=== PATIENT | female | born 1955 | race Caucasian/White ===

== ENCOUNTER 2018-03-29 14:17 | Inpatient (IN) | payer MEDICAID ==
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
[2018-03-29 15:45] LABS: BASO # 0.1 K/uL (0.0-0.2); BASO % 0.7 % (0.0-2.0); EOS # 0.3 K/uL (0.0-0.7); EOS % 2.4 % (0.0-4.0); HEMOGLOBIN 12.7 g/dL (11.0-16.0); LYMPH # 1.9 K/uL (1.0-4.3); LYMPH % 18.5 % (20.0-40.0); MEAN CORPUSCULAR HEMOGLOBIN 28.4 pg (27.0-31.0); MEAN CORPUSCULAR HGB CONC 33.3 g/dL (33.0-37.0); MEAN PLATELET VOLUME 8.2 fL (7.2-11.7); MONO # 0.5 K/uL (0.0-0.8); MONO % 5.1 % (0.0-10.0); NEUT # 7.7 K/uL (1.8-7.0); NEUT % 73.3 % (50.0-75.0); NRBC % 0.1 % (0.0-2.0); RBC 4.48 Mil/uL (3.80-5.20); RED CELL DISTRIBUTION WIDTH 13.8 % (11.5-14.5); WHITE BLOOD COUNT 10.5 K/uL (4.8-10.8)
[2018-03-29 15:54] LABS: SQUAMOUS EPITHIAL < 1 /hpf (0-5); URINE BILIRUBIN NEGATIVE (NEGATIVE); URINE BLOOD NEGATIVE (NEGATIVE); URINE CLARITY Clear (Clear); URINE COLOR Straw (YELLOW); URINE GLUCOSE (UA) 3+ mg/dL (Normal); URINE LEUKOCYTE ESTERASE TRACE Leu/uL (Negative); URINE PROTEIN NEGATIVE (NEGATIVE); URINE UROBILINOGEN NORMAL mg/dL (0.2-1.0)
[2018-03-29 16:01] LABS: ALB/GLOB RATIO 1.4 (1.0-2.1); ALBUMIN 4.1 g/dL (3.5-5.0); ALT/SGPT 22 U/L (9-52); AST/SGOT 24 U/L (14-36); BLOOD UREA NITROGEN 9 mg/dL (7-17); CALCIUM 9.7 mg/dl (8.6-10.4); GFR AFRICAN-AMERICAN > 60; GFR NON-AFRICAN AMERICAN > 60
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
--- NOTE | 2018-03-29 16:53 | RAD ---
Date of service: 03/29/2018 PROCEDURE: CHEST RADIOGRAPH, 1 VIEW HISTORY: SOB COMPARISON: 01/14/2013. FINDINGS: LUNGS: The lungs are well inflated and clear. PLEURA: No pneumothorax or pleural fluid seen. CARDIOVASCULAR: There is mild cardiomegaly. OSSEOUS STRUCTURES: No significant abnormalities. VISUALIZED UPPER ABDOMEN: Normal. OTHER FINDINGS: None. IMPRESSION: No active pulmonary disease.
--- NOTE | 2018-03-29 19:01 | CP.PCM.HP ---
Past Patient History - Past Social History Smoking Status: Never Smoked - CARDIAC Hx Hypercholesterolemia: Yes Hx Hypertension: Yes - PULMONARY Hx Asthma: Yes - ENDOCRINE/METABOLIC Hx Diabetes Mellitus Type 2: Yes - MUSCULOSKELETAL/RHEUMATOLOGICAL Hx Arthritis: Yes - PSYCHIATRIC Hx Substance Use: No - SURGICAL HISTORY Hx Surgeries: Yes Other/Comment: skull, left eye, right hand, left hip, kidney tumor - ANESTHESIA Hx Anesthesia: Yes Hx Anesthesia Reactions: No Hx Malignant Hyperthermia: No Meds Allergies/Adverse Reactions: Allergies Allergy/AdvReac Type Severity Reaction Status Date / Time Penicillins Allergy Verified 03/29/18 14:40 Results - Vital Signs Recent Vital Signs: Last Vital Signs Temp 98.4 F 03/29/18 14:35 Pulse 79 03/29/18 17:05 Resp 18 03/29/18 17:05 BP 159/83 H 03/29/18 17:05 Pulse Ox 97 03/29/18 18:52 - Labs Result Diagrams: 03/29/18 15:33 03/29/18 15:33 Labs: Laboratory Results - last 24 hr 03/29/18 03/29/18 03/29/18 14:34 15:33 15:33 WBC 10.5 RBC 4.48 Hgb 12.7 Hct 38.1 MCV 85.0 MCH 28.4 MCHC 33.3 RDW 13.8 Plt Count 224 MPV 8.2 Neut % (Auto) 73.3 Lymph % (Auto) 18.5 L [place] % (Auto) 5.1 Eos % (Auto) 2.4 Baso % (Auto) 0.7 Neut # (Auto) 7.7 H Lymph # (Auto) 1.9 [place] # (Auto) 0.5 Eos # (Auto) 0.3 Baso # (Auto) 0.1 Sodium Potassium Chloride Carbon Dioxide Anion Gap BUN Creatinine Est GFR ( Amer) Est GFR (Non-Af Amer) POC Glucose (mg/dL) 179 H Random Glucose Calcium Total Bilirubin AST ALT Alkaline Phosphatase Troponin I Total Protein Albumin Globulin Albumin/Globulin Ratio TSH 3rd Generation Urine Color Straw Urine Clarity Clear Urine pH 6.0 Ur Specific [place] 1.007 Urine Protein Negative Urine Glucose (UA) 3+ H Urine Ketones Negative Urine Blood Negative Urine Nitrate Negative Urine Bilirubin Negative Urine Urobilinogen Normal Ur Leukocyte Esterase Trace Urine WBC (Auto) 2 Ur Squamous Epith Cells < 1 03/29/18 15:33 WBC RBC Hgb Hct MCV MCH MCHC RDW Plt Count MPV Neut % (Auto) Lymph % (Auto) [place] % (Auto) Eos % (Auto) Baso % (Auto) Neut # (Auto) Lymph # (Auto) [place] # (Auto) Eos # (Auto) Baso # (Auto) Sodium 141 Potassium 4.5 Chloride 103 Carbon Dioxide 30 Anion Gap 13 BUN 9 Creatinine 0.6 L Est GFR ( Amer) > 60 Est GFR (Non-Af Amer) > 60 POC Glucose (mg/dL) Random Glucose 166 H Calcium 9.7 Total Bilirubin 0.4 AST 24 ALT 22 Alkaline Phosphatase 110 Troponin I < 0.0120 Total Protein 7.0 Albumin 4.1 Globulin 2.9 Albumin/Globulin Ratio 1.4 TSH 3rd Generation 1.78 Urine Color Urine Clarity Urine pH Ur Specific [place] Urine Protein Urine Glucose (UA) Urine Ketones Urine Blood Urine Nitrate Urine Bilirubin Urine Urobilinogen Ur Leukocyte Esterase Urine WBC (Auto) Ur Squamous Epith Cells Assessment & Plan - Assessment and Plan (Free Text) Plan: gi dvt prhylaxis fs ac hs low dose novolog dr. miranda ct scan done antivert
[2018-03-29] MEDS: Insulin Detemir 100 units/ml Vial (Levemir) SC SCH (21:45)
[2018-03-29] MEDS ORDERED: Insulin Detemir 100 units/ml Vial (Levemir) SC SCH (22:00)
[2018-03-30 07:06] LABS: FREE T4 0.91 ng/dL (0.78-2.19)
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
--- NOTE | 2018-03-30 09:33 | CP.PCM.PN ---
<Isaias Sharp - Last Filed: 04/02/18 07:45> Subjective - Date & Time of Evaluation Date of Evaluation: 03/30/18 Time of Evaluation: 09:32 - Subjective Subjective: Progress note for Dr. Rod Berg's Service Patient seen and examined at bedside. Per nursing no acute events occurred overnight. Patient reports an improvement in symptoms since being admitted to the hospital. The patient denies any chest pain, palpitations, fevers, chills, nausea, vomitiny, or any other complaints. Objective - Vital Signs/Intake and Output Vital Signs (last 24 hours): Temp Pulse Resp BP Pulse Ox 98.1 F 89 20 144/75 97 03/30/18 08:25 03/30/18 08:25 03/30/18 08:25 03/30/18 08:25 03/30/18 08:25 Intake and Output: 03/30/18 03/30/18 06:59 18:59 Intake Total 10 Balance 10 - Medications Medications: Current Medications Carvedilol (Coreg) 6.25 mg PO BID REPLACED BY [facility] Clopidogrel Bisulfate (Plavix) 75 mg PO DAILY [facility]PLAC[facility] Enoxaparin Sodium (Lovenox) 40 mg SC DAILY REPLACED BY [facility] Famotidine (Pepcid) 40 mg PO DAILY REPLACED BY [facility] Gabapentin (Neurontin) 800 mg PO [facility] Last Admin: 03/29/18 21:45 Dose: 800 mg Home Med (Alogliptin Donato/Metformin Hcl [Alogliptin-Metformin 12.5-500]) 1 tab PO BID [facility]PL[facility] Insulin Detemir (Levemir) 30 unit SC [facility] Last Admin: 03/29/18 21:45 Dose: 30 unit Meclizine HCl (Antivert) 25 mg PO Q8 [facility]PL[facility] Last Admin: 03/30/18 05:31 Dose: 25 mg Multivitamins (Hexavitamin) 1 tab PO DAILY [facility] Pioglitazone HCl (Actos) 30 mg PO DAILY [facility]PLAC[facility] Rosuvastatin Calcium (Crestor) 40 mg PO [facility] Last Admin: 03/29/18 21:45 Dose: 40 mg - Labs Labs: 03/29/18 15:33 03/29/18 15:33 - Head Exam Head Exam: ATRAUMATIC, NORMAL INSPECTION, NORMOCEPHALIC - Eye Exam Eye Exam: EOMI, Normal appearance, PERRL Pupil Exam: NORMAL ACCOMODATION, PERRL - ENT Exam ENT Exam: Mucous Membranes Moist, Normal Oropharynx - Respiratory Exam Respiratory Exam: Clear to Ausculation Bilateral, NORMAL BREATHING PATTERN - Cardiovascular Exam Cardiovascular Exam: REGULAR RHYTHM, +S1, +S2 - GI/Abdominal Exam GI & Abdominal Exam: Soft, Normal Bowel Sounds - Extremities Exam Extremities Exam: Full ROM, Normal Inspection - Back Exam Back Exam: NORMAL INSPECTION. absent: CVA tenderness (R), paraspinal tenderness - Neurological Exam Neurological Exam: Alert, CN II-XII Intact, Oriented x3 - Psychiatric Exam Psychiatric exam: Normal Affect, Normal Mood - Skin Skin Exam: Dry, Intact Assessment and Plan - Assessment and Plan (Free Text) Assessment: 62 year old female with a past medical history of hypertension, diabetic neuropathy, and hypercholesterolemia and diabetes who was admitted for dizziness. Plan: 1. Dizziness -Antivert -Neurology consulted (Dr. Magaña). Help appreciated. -Carotid U/S ordered .Will f/u with results. -Echo ordered .Will f/u with results. 2. hx of diabetes -Continue home medications -Carb consistent diet -Accu checks ACHS 3. hx of hypertension -Continue home medications 4. hx of hypercholesterolemia -Continue home medications PPX Lovenox Case discussed with Attending Dr. Rod Berg. Isaias Sharp, PGY-2. <Barrington Berg S - Last Filed: 04/02/18 23:16> Objective - Vital Signs/Intake and Output Vital Signs (last 24 hours): Temp Pulse Resp BP Pulse Ox 98.3 F 69 20 121/72 100 04/02/18 15:07 04/02/18 15:07 04/02/18 15:07 04/02/18 15:07 04/02/18 15:07 Intake and Output: 04/02/18 04/03/18 18:59 06:59 Intake Total 400 Balance 400 - Medications Medications: Current Medications Carvedilol (Coreg) 6.25 mg PO BID REPLACED [facility] Last Admin: 04/02/18 17:14 Dose: 6.25 mg Clopidogrel Bisulfate (Plavix) 75 mg PO DAILY [facility] Last Admin: 04/02/18 09:51 Dose: 75 mg Diphenhydramine HCl (Benadryl) 25 mg PO BID REPLACED [facility] Last Admin: 04/02/18 17:14 Dose: 25 mg Enoxaparin Sodium (Lovenox) 40 mg SC DAILY REPLACED [facility] Last Admin: 04/02/18 09:52 Dose: 40 mg Famotidine (Pepcid) 40 mg PO DAILY [facility] Last Admin: 04/02/18 09:51 Dose: 40 mg Gabapentin (Neurontin) 800 mg PO [facility] Last Admin: 04/02/18 22:44 Dose: 800 mg Insulin Detemir (Levemir) 30 unit SC [facility] Last Admin: 04/02/18 22:44 Dose: 30 unit Lactulose (Enulose) 20 gm PO [facility] Last Admin: 04/02/18 22:47 Dose: Not Given Meclizine HCl (Antivert) 25 mg PO Q8 REPLACED [facility] Last Admin: 04/02/18 22:44 Dose: 25 mg Metformin HCl (Glucophage) 500 mg PO BIDCC REPLACED BY [facility] Last Admin: 04/02/18 17:14 Dose: 500 mg Multivitamins (Hexavitamin) 1 tab PO DAILY [facility] Last Admin: 04/02/18 09:51 Dose: 1 tab Ondansetron HCl (Zofran Inj) 4 mg IVP Q6 PRN PRN Reason: Nausea/Vomiting Last Admin: 03/31/18 01:05 Dose: 4 mg Pioglitazone HCl (Actos) 30 mg PO DAILY [facility]PLACED [facility] Last Admin: 04/02/18 09:49 Dose: 30 mg Rosuvastatin Calcium (Crestor) 40 mg PO [facility] Last Admin: 04/02/18 22:45 Dose: 40 mg Sitagliptin Phosphate (Januvia) 100 mg PO DAILY REPLACED [facility] Last Admin: 04/02/18 09:52 Dose: 100 mg - Labs Labs: 04/02/18 06:32 04/02/18 06:32 Attending/Attestation - Attestation I have personally seen and examined this patient.: Yes I have fully participated in the care of the patient.: Yes I have reviewed all pertinent clinical information, including history, physical exam and plan: Yes Notes (Text): jens golden
[2018-03-30] MEDS ORDERED: Insulin Detemir 100 units/ml Vial (Levemir) SC SCH (10:00)
[2018-03-30] MEDS: Multiple Vitamins Tab PO SCH (11:17)
[2018-03-30] MEDS: Enoxaparin 40 mg Syringe SC SCH (11:18)
--- NOTE | 2018-03-30 11:59 | VASCLAB ---
Date of service: 03/30/2018 PROCEDURE: HISTORY: assess stenosis,DIZZINESS COMPARISON: None available. TECHNIQUE: Grayscale and duplex Doppler evaluation of the cervical carotid and vertebral arteries were performed. The common carotid, carotid bifurcations and cervical Internal Carotid Artery (ICA) and proximal External Carotid Artery (ECA) were evaluated. The vertebral arteries were evaluated for gross patency and flow direction. Report prepared by Patria Townsend, CAM, S FINDINGS: RIGHT CAROTID ARTERIES: 1. Common Carotid Artery: No significant focal plaque formation of the right common carotid artery. Maximum Peak Systolic velocity: 87 cm/sec: End-diastolic velocity 23 cm/sec. 2. Carotid Bifurcation: plaque formation. Maximum Peak Systolic velocity: 50 cm/sec: End-diastolic velocity 13 cm/sec. 3. Internal Carotid Artery: Plaque description: 3.1. Proximal Segment: Peak systolic velocity 60 cm/sec: End-diastolic velocity 20 cm/sec - % stenosis 3.2. Middle Segment: Peak systolic velocity 71 cm/sec: End-diastolic velocity 22 cm/sec - % stenosis 3.3. Distal Segment: Peak systolic velocity 74 cm/sec: End-diastolic velocity 28 cm/sec - % stenosis 4. External Carotid Artery: No significant focal plaque formation. Peak systolic velocity 62 cm/sec 5. ICA/CCA Ratio: 0.9 LEFT CAROTID ARTERIES: 1. Common Carotid Artery: No significant focal plaque formation of the left common carotid artery. Maximum Peak Systolic velocity: 85 cm/sec: End-diastolic velocity 13 cm/sec. 2. Carotid Bifurcation: plaque formation. Maximum Peak Systolic velocity: 53 cm/sec: End-diastolic velocity 12 cm/sec. 3. Internal Carotid Artery: Plaque description: 3.1. Proximal Segment: Peak systolic velocity 83 cm/sec: End-diastolic velocity 26 cm/sec - % stenosis 3.2. Middle Segment: Peak systolic velocity 100 cm/sec: End-diastolic velocity 31 cm/sec - % stenosis 3.3. Distal Segment: Peak systolic velocity 84 cm/sec: End-diastolic velocity 24 cm/sec - % stenosis 4. External Carotid Artery: No significant focal plaque formation. Peak systolic velocity 63 cm/sec 5. ICA/CCA Ratio: 1.4 VERTEBRAL ARTERIES: 1. Right Vertebral Artery: The right vertebral artery flow direction is antegrade. 2. Left Vertebral Artery: The left vertebral artery flow direction is antegrade. OTHER FINDINGS: 1. Right Brachial Blood pressure: 144 mmHg. 2. Left Brachial Blood pressure: 148 mmHg. IMPRESSION: RIGHT: Duplex scan does not suggest hemodynamically significant stenosis of the right extracranial carotid arteries. LEFT: Duplex scan does not suggest hemodynamically significant stenosis of the left extracranial carotid arteries.
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
--- NOTE | 2018-03-30 17:26 | CARD ---
APPROVED REPORT Date of service: 03/30/2018 EXAM: Two-dimensional and M-mode echocardiogram with Doppler and color Doppler. INDICATION Dizziness and Vertigo cardiac status RISK FACTORS Hyperlipidemia 2D DIMENSIONS IVSd1.3 (0.7-1.1cm)LVDd4.7 (3.9-5.9cm) PWd1.2 (0.7-1.1cm)LVDs2.9 (2.5-4.0cm) FS (%) 40.0 %LVEF (%)70.5 (>50%) M-Mode DIMENSIONS Left Atrium (MM)4.27 (2.5-4.0cm)IVSd1.23 (0.7-1.1cm) Aortic Root3.13 (2.2-3.7cm)LVDd5.38 (4.0-5.6cm) Aortic Cusp Exc.2.28 (1.5-2.0cm)PWd0.88 (0.7-1.1cm) FS (%) 43 %LVDs3.06 (2.0-3.8cm) LVEF (%)74 (>50%) Mitral Valve MV E Xmzerpil21.1cm/sMV A Zfmwnfzt32.6cm/sE/A ratio0.9 TDI E/Lateral E'0.0E/Medial E'0.0 Tricuspid Valve TR Peak [id number]/sTR Peak Gr.[id number] LEFT VENTRICLE The left ventricle is normal size. There is mild concentric left ventricular hypertrophy. The left ventricular function is normal. The left ventricular ejection fraction is within the normal range. There is normal LV segmental wall motion. Transmitral Doppler flow pattern is Grade I-abnormal relaxation pattern. RIGHT VENTRICLE The right ventricle is normal size. There is normal right ventricular wall thickness. The right ventricular systolic function is normal. ATRIA The left atrium is borderline dilated. The right atrium size is normal. AORTIC VALVE The aortic valve is mildly thickened. No aortic regurgitation is present. There is no aortic valvular stenosis. MITRAL VALVE The mitral valve is mildly thickened. There is no mitral valve stenosis. There is no mitral valve regurgitation noted. TRICUSPID VALVE The tricuspid valve is normal in structure. There is no tricuspid valve regurgitation noted. PULMONIC VALVE The pulmonary valve is normal in structure. There is no pulmonic valvular regurgitation. GREAT VESSELS The aortic root is normal in size. The IVC is normal in size and collapses >50% with inspiration. PERICARDIAL EFFUSION There is no pericardial effusion. <Conclusion> The left ventricle is normal size. There is mild concentric left ventricular hypertrophy. The left ventricular function is normal. The left ventricular ejection fraction is within the normal range. There is normal LV segmental wall motion. Transmitral Doppler flow pattern is Grade I-abnormal relaxation pattern.
--- NOTE | 2018-03-30 20:57 | CP.PCM.PN ---
Subjective - Date & Time of Evaluation Date of Evaluation: 03/30/18 Time of Evaluation: 10:00 - Subjective Subjective: clinically same Objective - Vital Signs/Intake and Output Vital Signs (last 24 hours): Temp Pulse Resp BP Pulse Ox 98.2 F 78 20 126/76 95 03/30/18 15:07 03/30/18 15:07 03/30/18 15:07 03/30/18 15:07 03/30/18 15:07 - Medications Medications: Current Medications Carvedilol (Coreg) 6.25 mg PO BID COUNTS [facility]CLUDE 234 BEDS AT THE [facility] Last Admin: 03/30/18 17:24 Dose: 6.25 mg Clopidogrel Bisulfate (Plavix) 75 mg PO DAILY [facility]S INCLUDE 234 BEDS AT THE [facility] Last Admin: 03/30/18 11:16 Dose: 75 mg Enoxaparin Sodium (Lovenox) 40 mg SC DAILY [facility]S INCLUDE 234 BEDS AT THE [facility] Last Admin: 03/30/18 11:18 Dose: 40 mg Famotidine (Pepcid) 40 mg PO DAILY [facility]S [facility]CLUDE 234 BEDS AT THE [facility] Last Admin: 03/30/18 11:18 Dose: 40 mg Gabapentin (Neurontin) 800 mg PO [facility] Last Admin: 03/29/18 21:45 Dose: 800 mg Insulin Detemir (Levemir) 30 unit SC [facility] Last Admin: 03/29/18 21:45 Dose: 30 unit Meclizine HCl (Antivert) 25 mg PO Q8 COUNTS INCLUDE 234 BEDS AT THE [facility] Last Admin: 03/30/18 14:25 Dose: 25 mg [facility] Last Admin: 03/30/18 17:24 Dose: 500 mg Multivitamins (Hexavitamin) 1 tab PO DAILY [facility]CLUDE 234 BEDS AT THE [facility] Last Admin: 03/30/18 11:17 Dose: 1 tab Ondansetron HCl (Zofran Inj) 4 mg IVP Q6 PRN PRN Reason: Nausea/Vomiting Last Admin: 03/30/18 12:27 Dose: 4 mg Pioglitazone HCl (Actos) 30 mg PO DAILY [facility]CLUDE 234 BEDS AT [facility] Last Admin: 03/30/18 11:18 Dose: 30 mg Rosuvastatin Calcium (Crestor) 40 mg PO [facility] Last Admin: 03/29/18 21:45 Dose: 40 mg Sitagliptin Phosphate (Januvia) 100 mg PO DAILY [facility] INCLUDE 234 BEDS AT THE [facility] Last Admin: 03/30/18 11:16 Dose: 100 mg - Labs Labs: 03/29/18 15:33 03/29/18 15:33 - Constitutional Appears: Well - Head Exam Head Exam: ATRAUMATIC, NORMAL INSPECTION, NORMOCEPHALIC - Eye Exam Eye Exam: EOMI, Normal appearance, PERRL Pupil Exam: NORMAL ACCOMODATION, PERRL - ENT Exam ENT Exam: Mucous Membranes Moist, Normal Exam - Neck Exam Neck Exam: Full ROM, Normal Inspection. absent: Lymphadenopathy - Respiratory Exam Respiratory Exam: Decreased Breath Sounds - Cardiovascular Exam Cardiovascular Exam: REGULAR RHYTHM, +S1, +S2 - GI/Abdominal Exam GI & Abdominal Exam: Soft, Diminished Bowel Sounds - Rectal Exam Rectal Exam: Deferred Assessment and Plan - Assessment and Plan (Free Text) Plan: 62 year old female with a past medical history of hypertension, diabetic neuropathy, and hypercholesterolemia and diabetes who was admitted for dizziness. Plan: 1. Dizziness -Antivert -Neurology consulted (Dr. Magaña). Help appreciated. -Carotid U/S ordered .Will f/u with results. -Echo ordered .Will f/u with results. 2. hx of diabetes -Continue home medications -Carb consistent diet -Accu checks ACHS 3. hx of hypertension -Continue home medications 4. hx of hypercholesterolemia -Continue home medications
[2018-03-30] MEDS: Insulin Detemir 100 units/ml Vial (Levemir) SC SCH (21:49)
[2018-03-31 08:44] LABS: BASO % 0.3 % (0.0-2.0); EOS # 0.2 K/uL (0.0-0.7); EOS % 2.7 % (0.0-4.0); HEMOGLOBIN 12.4 g/dL (11.0-16.0); LYMPH % 23.9 % (20.0-40.0); MEAN CELL VOLUME 84.7 fL (81.0-99.0); MEAN CORPUSCULAR HEMOGLOBIN 28.4 pg (27.0-31.0); MEAN CORPUSCULAR HGB CONC 33.5 g/dL (33.0-37.0); MEAN PLATELET VOLUME 7.7 fL (7.2-11.7); MONO # 0.5 K/uL (0.0-0.8); MONO % 6.3 % (0.0-10.0); NEUT # 5.7 K/uL (1.8-7.0); NEUT % 66.8 % (50.0-75.0); RBC 4.36 Mil/uL (3.80-5.20); RED CELL DISTRIBUTION WIDTH 13.4 % (11.5-14.5); WHITE BLOOD COUNT 8.5 K/uL (4.8-10.8)
[2018-03-31] MEDS: Enoxaparin 40 mg Syringe SC SCH (08:59)
[2018-03-31] MEDS: Multiple Vitamins Tab PO SCH (08:59)
[2018-03-31 09:15] LABS: ALB/GLOB RATIO 1.4 (1.0-2.1); ALBUMIN 3.8 g/dL (3.5-5.0); ALT/SGPT 24 U/L (9-52); AST/SGOT 13 U/L (14-36); BLOOD UREA NITROGEN 11 mg/dL (7-17); CALCIUM 9.1 mg/dl (8.6-10.4); GFR AFRICAN-AMERICAN > 60; GFR NON-AFRICAN AMERICAN > 60
--- NOTE | 2018-03-31 15:36 | CP.PCM.PN ---
Subjective - Date & Time of Evaluation Date of Evaluation: 03/31/18 Time of Evaluation: 10:15 - Subjective Subjective: clinically same Objective - Vital Signs/Intake and Output Vital Signs (last 24 hours): Temp Pulse Resp BP Pulse Ox 98.8 F 76 18 141/81 97 03/31/18 08:48 03/31/18 13:00 03/31/18 08:48 03/31/18 08:48 03/31/18 08:48 Intake and Output: 03/31/18 03/31/18 06:59 18:59 Intake Total 120 450 Balance 120 450 - Medications Medications: Current Medications Carvedilol (Coreg) 6.25 mg PO BID [facility] Last Admin: 03/31/18 08:59 Dose: 6.25 mg Clopidogrel Bisulfate (Plavix) 75 mg PO DAILY [facility] Last Admin: 03/31/18 08:59 Dose: 75 mg Diphenhydramine HCl (Benadryl) 25 mg PO BID [facility] Last Admin: 03/31/18 09:04 Dose: 25 mg Enoxaparin Sodium (Lovenox) 40 mg SC DAILY [facility] Last Admin: 03/31/18 08:59 Dose: 40 mg Famotidine (Pepcid) 40 mg PO DAILY [facility] Last Admin: 03/31/18 08:59 Dose: 40 mg Gabapentin (Neurontin) 800 mg PO [facility] Last Admin: 03/30/18 21:49 Dose: 800 mg Insulin Detemir (Levemir) 30 unit SC HS [facility] Last Admin: 03/30/18 21:49 Dose: 30 unit Meclizine HCl (Antivert) 25 mg PO Q8 [facility] Last Admin: 03/31/18 13:08 Dose: 25 mg [facility] Last Admin: 03/31/18 07:56 Dose: 500 mg Multivitamins (Hexavitamin) 1 tab PO DAILY [facility] Last Admin: 03/31/18 08:59 Dose: 1 tab Ondansetron HCl (Zofran Inj) 4 mg IVP Q6 PRN PRN Reason: Nausea/Vomiting Last Admin: 03/31/18 01:05 Dose: 4 mg Pioglitazone HCl (Actos) 30 mg PO DAILY [facility] Last Admin: 03/31/18 09:05 Dose: 30 mg Rosuvastatin Calcium (Crestor) 40 mg PO [facility] Last Admin: 03/30/18 21:49 Dose: 40 mg Sitagliptin Phosphate (Januvia) 100 mg PO DAILY [facility] Last Admin: 03/31/18 08:59 Dose: 100 mg - Labs Labs: 03/31/18 08:29 03/31/18 08:29 - Constitutional Appears: Well - Head Exam Head Exam: ATRAUMATIC, NORMAL INSPECTION, NORMOCEPHALIC - Eye Exam Eye Exam: EOMI, Normal appearance, PERRL Pupil Exam: NORMAL ACCOMODATION, PERRL - ENT Exam ENT Exam: Mucous Membranes Moist, Normal Exam - Neck Exam Neck Exam: Full ROM, Normal Inspection. absent: Lymphadenopathy - Respiratory Exam Respiratory Exam: Decreased Breath Sounds - Cardiovascular Exam Cardiovascular Exam: REGULAR RHYTHM, +S1, +S2 - GI/Abdominal Exam GI & Abdominal Exam: Soft, Diminished Bowel Sounds - Rectal Exam Rectal Exam: Deferred
[2018-03-31] MEDS: Insulin Detemir 100 units/ml Vial (Levemir) SC SCH (21:25)
[2018-04-01 08:10] LABS: BASO % 0.4 % (0.0-2.0); EOS # 0.2 K/uL (0.0-0.7); EOS % 2.7 % (0.0-4.0); HEMOGLOBIN 11.7 g/dL (11.0-16.0); LYMPH # 1.7 K/uL (1.0-4.3); LYMPH % 21.6 % (20.0-40.0); MEAN CELL VOLUME 85.3 fL (81.0-99.0); MEAN CORPUSCULAR HGB CONC 32.9 g/dL (33.0-37.0); MEAN PLATELET VOLUME 7.8 fL (7.2-11.7); MONO # 0.5 K/uL (0.0-0.8); MONO % 6.3 % (0.0-10.0); NEUT # 5.5 K/uL (1.8-7.0); RBC 4.17 Mil/uL (3.80-5.20); RED CELL DISTRIBUTION WIDTH 13.4 % (11.5-14.5)
[2018-04-01 08:34] LABS: ALB/GLOB RATIO 1.3 (1.0-2.1); ALBUMIN 3.6 g/dL (3.5-5.0); ALT/SGPT 24 U/L (9-52); AST/SGOT 12 U/L (14-36); BLOOD UREA NITROGEN 11 mg/dL (7-17); CALCIUM 8.8 mg/dl (8.6-10.4); GFR AFRICAN-AMERICAN > 60; GFR NON-AFRICAN AMERICAN > 60
[2018-04-01] MEDS: Enoxaparin 40 mg Syringe SC SCH (09:37)
[2018-04-01] MEDS: Multiple Vitamins Tab PO SCH (09:37)
--- NOTE | 2018-04-01 17:37 | CP.PCM.PN ---
Subjective - Date & Time of Evaluation Date of Evaluation: 04/01/18 Time of Evaluation: 09:30 - Subjective Subjective: clinically same Objective - Vital Signs/Intake and Output Vital Signs (last 24 hours): Temp Pulse Resp BP Pulse Ox 98.4 F 73 20 121/77 97 04/01/18 15:00 04/01/18 16:09 04/01/18 15:00 04/01/18 15:00 04/01/18 15:00 Intake and Output: 04/01/18 04/01/18 06:59 18:59 Intake Total 400 Balance 400 - Medications Medications: Current Medications Carvedilol (Coreg) 6.25 mg PO BID [facility] Last Admin: 04/01/18 17:27 Dose: 6.25 mg Clopidogrel Bisulfate (Plavix) 75 mg PO DAILY [facility] Last Admin: 04/01/18 09:37 Dose: 75 mg Diphenhydramine HCl (Benadryl) 25 mg PO BID [facility] Last Admin: 04/01/18 17:28 Dose: 25 mg Enoxaparin Sodium (Lovenox) 40 mg SC DAILY [facility] Last Admin: 04/01/18 09:37 Dose: 40 mg Famotidine (Pepcid) 40 mg PO DAILY [facility] Last Admin: 04/01/18 09:37 Dose: 40 mg Gabapentin (Neurontin) 800 mg PO [facility] Last Admin: 03/31/18 21:25 Dose: 800 mg Insulin Detemir (Levemir) 30 unit SC HS [facility] Last Admin: 03/31/18 21:25 Dose: 30 unit Lactulose (Enulose) 20 gm PO [facility] Meclizine HCl (Antivert) 25 mg PO Q8 [facility] Last Admin: 04/01/18 13:10 Dose: 25 mg [facility] Last Admin: 04/01/18 17:27 Dose: 500 mg Multivitamins (Hexavitamin) 1 tab PO DAILY [facility] Last Admin: 04/01/18 09:37 Dose: 1 tab Ondansetron HCl (Zofran Inj) 4 mg IVP Q6 PRN PRN Reason: Nausea/Vomiting Last Admin: 03/31/18 01:05 Dose: 4 mg Pioglitazone HCl (Actos) 30 mg PO DAILY [facility] Last Admin: 04/01/18 09:38 Dose: 30 mg Rosuvastatin Calcium (Crestor) 40 mg PO HS [facility] Last Admin: 03/31/18 21:24 Dose: 40 mg Sitagliptin Phosphate (Januvia) 100 mg PO DAILY [facility] Last Admin: 04/01/18 09:37 Dose: 100 mg - Labs Labs: 04/01/18 07:58 04/01/18 07:58 - Constitutional Appears: Well - Head Exam Head Exam: ATRAUMATIC, NORMAL INSPECTION, NORMOCEPHALIC - Eye Exam Eye Exam: EOMI, Normal appearance, PERRL Pupil Exam: NORMAL ACCOMODATION, PERRL - ENT Exam ENT Exam: Mucous Membranes Moist, Normal Exam - Neck Exam Neck Exam: Full ROM, Normal Inspection. absent: Lymphadenopathy - Respiratory Exam Respiratory Exam: Decreased Breath Sounds - Cardiovascular Exam Cardiovascular Exam: REGULAR RHYTHM, +S1, +S2 - GI/Abdominal Exam GI & Abdominal Exam: Soft, Diminished Bowel Sounds - Rectal Exam Rectal Exam: Deferred
[2018-04-01] MEDS: Insulin Detemir 100 units/ml Vial (Levemir) SC SCH (21:18)
[2018-04-02 06:55] LABS: BASO % 0.3 % (0.0-2.0); EOS # 0.2 K/uL (0.0-0.7); EOS % 2.4 % (0.0-4.0); HEMOGLOBIN 11.5 g/dL (11.0-16.0); LYMPH # 2.1 K/uL (1.0-4.3); LYMPH % 21.4 % (20.0-40.0); MEAN CELL VOLUME 85.1 fL (81.0-99.0); MEAN CORPUSCULAR HEMOGLOBIN 28.2 pg (27.0-31.0); MEAN CORPUSCULAR HGB CONC 33.1 g/dL (33.0-37.0); MEAN PLATELET VOLUME 7.9 fL (7.2-11.7); MONO # 0.6 K/uL (0.0-0.8); MONO % 6.6 % (0.0-10.0); NEUT # 6.8 K/uL (1.8-7.0); NEUT % 69.3 % (50.0-75.0); RBC 4.09 Mil/uL (3.80-5.20); RED CELL DISTRIBUTION WIDTH 13.4 % (11.5-14.5); WHITE BLOOD COUNT 9.8 K/uL (4.8-10.8)
[2018-04-02 07:21] LABS: ALB/GLOB RATIO 1.4 (1.0-2.1); ALBUMIN 3.5 g/dL (3.5-5.0); ALT/SGPT 23 U/L (9-52); AST/SGOT 14 U/L (14-36); BLOOD UREA NITROGEN 9 mg/dL (7-17); CALCIUM 8.9 mg/dl (8.6-10.4); GFR AFRICAN-AMERICAN > 60; GFR NON-AFRICAN AMERICAN > 60
--- NOTE | 2018-04-02 07:47 | CP.PCM.PN ---
Subjective - Date & Time of Evaluation Date of Evaluation: 04/02/18 Time of Evaluation: 07:46 - Subjective Subjective: Progress note for Dr. Rod Berg's Service Patient seen and examined at bedside. Per nursing no acute events occurred overnight. Patient reports an improvement in symptoms since being admitted to the hospital. The patient denies any chest pain, palpitations, fevers, chills, nausea, vomitiny, or any other complaints. Objective - Vital Signs/Intake and Output Vital Signs (last 24 hours): Temp Pulse Resp BP Pulse Ox 98.8 F 81 20 138/79 96 04/01/18 23:15 04/02/18 02:16 04/01/18 23:15 04/02/18 02:16 04/01/18 23:15 - Medications Medications: Current Medications Carvedilol (Coreg) 6.25 mg PO BID [facility] Last Admin: 04/01/18 17:27 Dose: 6.25 mg Clopidogrel Bisulfate (Plavix) 75 mg PO DAILY [facility] Last Admin: 04/01/18 09:37 Dose: 75 mg Diphenhydramine HCl (Benadryl) 25 mg PO BID [facility] Last Admin: 04/01/18 17:28 Dose: 25 mg Enoxaparin Sodium (Lovenox) 40 mg SC DAILY [facility] Last Admin: 04/01/18 09:37 Dose: 40 mg Famotidine (Pepcid) 40 mg PO DAILY [facility] Last Admin: 04/01/18 09:37 Dose: 40 mg Gabapentin (Neurontin) 800 mg PO [facility] Last Admin: 04/01/18 21:16 Dose: 800 mg Insulin Detemir (Levemir) 30 unit SC [facility] Last Admin: 04/01/18 21:18 Dose: 30 unit Lactulose (Enulose) 20 gm PO [facility] Last Admin: 04/01/18 21:16 Dose: 20 gm Meclizine HCl (Antivert) 25 mg PO Q8 [facility] Last Admin: 04/02/18 05:22 Dose: 25 mg [facility]) [facility] Last Admin: 04/01/18 17:27 Dose: 500 mg Multivitamins (Hexavitamin) 1 tab PO DAILY [facility] Last Admin: 04/01/18 09:37 Dose: 1 tab Ondansetron HCl (Zofran Inj) 4 mg IVP Q6 PRN PRN Reason: Nausea/Vomiting Last Admin: 03/31/18 01:05 Dose: 4 mg Pioglitazone HCl (Actos) 30 mg PO DAILY [facility] Last Admin: 04/01/18 09:38 Dose: 30 mg Rosuvastatin Calcium (Crestor) 40 mg PO HS [facility] Last Admin: 04/01/18 21:16 Dose: 40 mg Sitagliptin Phosphate (Januvia) 100 mg PO DAILY [facility] Last Admin: 04/01/18 09:37 Dose: 100 mg - Labs Labs: 04/02/18 06:32 04/02/18 06:32 - Head Exam Head Exam: ATRAUMATIC, NORMAL INSPECTION, NORMOCEPHALIC - Eye Exam Eye Exam: EOMI, Normal appearance, PERRL Pupil Exam: NORMAL ACCOMODATION - ENT Exam ENT Exam: Mucous Membranes Moist, Normal Exam - Respiratory Exam Respiratory Exam: Clear to Ausculation Bilateral, NORMAL BREATHING PATTERN. absent: Chest Wall Tenderness, Prolonged Expiratory Phase, Respiratory Distress - Cardiovascular Exam Cardiovascular Exam: REGULAR RHYTHM, +S1, +S2 - GI/Abdominal Exam GI & Abdominal Exam: Soft, Normal Bowel Sounds - Extremities Exam Extremities Exam: Full ROM. absent: Joint Swelling, Pedal Edema, Tenderness - Back Exam Back Exam: NORMAL INSPECTION. absent: CVA tenderness (R), paraspinal tenderness - Neurological Exam Neurological Exam: Awake, CN II-XII Intact, Oriented x3 - Psychiatric Exam Psychiatric exam: Normal Affect, Normal Mood - Skin Skin Exam: Dry, Intact, Normal Color Assessment and Plan - Assessment and Plan (Free Text) Assessment: 62 year old female with a past medical history of hypertension, diabetic neuropathy, and hypercholesterolemia and diabetes who was admitted for dizziness. Plan: 1. Dizziness -Antivert -Neurology consulted (Dr. Magaña). Help appreciated. -Carotid U/S :Right and left negative for any hemodynamically significant stenosis. -Echo :Left ventricle normal size :Mild concentric LVH :LVEF : 70% 2. hx of diabetes -Continue home medications -Carb consistent diet -Accu checks ACHS 3. hx of hypertension -Continue home medications 4. hx of hypercholesterolemia -Continue home medications PPX Lovenox Case discussed with Attending Dr. Rod Berg. Isaias Sharp, PGY-2.
[2018-04-02] MEDS: Multiple Vitamins Tab PO SCH (09:51)
[2018-04-02] MEDS: Enoxaparin 40 mg Syringe SC SCH (09:52)
[2018-04-02] MEDS ORDERED: Bupivacaine 0.25% 20 ML INJ IJ ONE (16:01)
[2018-04-02 16:50] VITALS: RESP 20
--- NOTE | 2018-04-02 19:05 | CP.PCM.PN ---
Subjective - Date & Time of Evaluation Date of Evaluation: 04/02/18 Time of Evaluation: 09:30 - Subjective Subjective: clinically same Objective - Vital Signs/Intake and Output Vital Signs (last 24 hours): Temp Pulse Resp BP Pulse Ox 98.3 F 69 20 121/72 100 04/02/18 15:07 04/02/18 15:07 04/02/18 15:07 04/02/18 15:07 04/02/18 15:07 Intake and Output: 04/02/18 04/03/18 18:59 06:59 Intake Total 400 Balance 400 - Medications Medications: Current Medications Carvedilol (Coreg) 6.25 mg PO BID [facility] Last Admin: 04/02/18 17:14 Dose: 6.25 mg Clopidogrel Bisulfate (Plavix) 75 mg PO DAILY [facility] Last Admin: 04/02/18 09:51 Dose: 75 mg Diphenhydramine HCl (Benadryl) 25 mg PO BID [facility] Last Admin: 04/02/18 17:14 Dose: 25 mg Enoxaparin Sodium (Lovenox) 40 mg SC DAILY [facility] Last Admin: 04/02/18 09:52 Dose: 40 mg Famotidine (Pepcid) 40 mg PO DAILY [facility] Last Admin: 04/02/18 09:51 Dose: 40 mg Gabapentin (Neurontin) 800 mg PO [facility] Last Admin: 04/01/18 21:16 Dose: 800 mg Insulin Detemir (Levemir) 30 unit SC HS [facility] Last Admin: 04/01/18 21:18 Dose: 30 unit Lactulose (Enulose) 20 gm PO HS [facility] Last Admin: 04/01/18 21:16 Dose: 20 gm Meclizine HCl (Antivert) 25 mg PO Q8 [facility] Last Admin: 04/02/18 13:40 Dose: 25 mg [facility] Last Admin: 04/02/18 17:14 Dose: 500 mg Multivitamins (Hexavitamin) 1 tab PO DAILY [facility] Last Admin: 04/02/18 09:51 Dose: 1 tab Ondansetron HCl (Zofran Inj) 4 mg IVP Q6 PRN PRN Reason: Nausea/Vomiting Last Admin: 03/31/18 01:05 Dose: 4 mg Pioglitazone HCl (Actos) 30 mg PO DAILY [facility] Last Admin: 04/02/18 09:49 Dose: 30 mg Rosuvastatin Calcium (Crestor) 40 mg PO HS [facility] Last Admin: 04/01/18 21:16 Dose: 40 mg Sitagliptin Phosphate (Januvia) 100 mg PO DAILY [facility] Last Admin: 04/02/18 09:52 Dose: 100 mg - Labs Labs: 04/02/18 06:32 04/02/18 06:32 - Constitutional Appears: Well - Head Exam Head Exam: ATRAUMATIC, NORMAL INSPECTION, NORMOCEPHALIC - Eye Exam Eye Exam: EOMI, Normal appearance, PERRL Pupil Exam: NORMAL ACCOMODATION, PERRL - ENT Exam ENT Exam: Mucous Membranes Moist, Normal Exam - Neck Exam Neck Exam: Full ROM, Normal Inspection. absent: Lymphadenopathy - Respiratory Exam Respiratory Exam: Decreased Breath Sounds - Cardiovascular Exam Cardiovascular Exam: REGULAR RHYTHM, +S1, +S2 - GI/Abdominal Exam GI & Abdominal Exam: Soft, Diminished Bowel Sounds - Rectal Exam Rectal Exam: Deferred Assessment and Plan - Assessment and Plan (Free Text) Plan: pt wants rehab shoaib same dizzyness still present followup wth consultations
[2018-04-02] MEDS: Insulin Detemir 100 units/ml Vial (Levemir) SC SCH (22:44)
[2018-04-03] MEDS: Multiple Vitamins Tab PO SCH (10:04)
[2018-04-03] MEDS: Enoxaparin 40 mg Syringe SC SCH (10:04)
--- NOTE | 2018-04-03 14:18 | CP.PCM.PN ---
Subjective - Date & Time of Evaluation Date of Evaluation: 04/03/18 Time of Evaluation: 14:18 - Subjective Subjective: Progress note for Dr. Rod Berg's Service Patient seen and examined at bedside. Per nursing no acute events occurred overnight. Patient reports an improvement in symptoms since being admitted to the hospital. The patient denies any chest pain, palpitations, fevers, chills, nausea, vomitiny, or any other complaints Objective - Vital Signs/Intake and Output Vital Signs (last 24 hours): Temp Pulse Resp BP Pulse Ox 98 F 77 20 128/74 97 04/03/18 07:00 04/03/18 10:00 04/03/18 07:00 04/03/18 10:00 04/03/18 07:00 Intake and Output: 04/03/18 04/03/18 06:59 18:59 Intake Total 100 400 Balance 100 400 - Medications Medications: Current Medications Carvedilol (Coreg) 6.25 mg PO BID [facility] Last Admin: 04/03/18 10:01 Dose: 6.25 mg Clopidogrel Bisulfate (Plavix) 75 mg PO DAILY [facility] Last Admin: 04/03/18 10:01 Dose: 75 mg Diphenhydramine HCl (Benadryl) 25 mg PO BID [facility] Last Admin: 04/03/18 10:01 Dose: 25 mg Enoxaparin Sodium (Lovenox) 40 mg SC DAILY [facility] Last Admin: 04/03/18 10:04 Dose: 40 mg Famotidine (Pepcid) 40 mg PO DAILY [facility] Last Admin: 04/03/18 10:04 Dose: 40 mg Gabapentin (Neurontin) 800 mg PO [facility] Last Admin: 04/02/18 22:44 Dose: 800 mg Insulin Detemir (Levemir) 30 unit SC [facility] Last Admin: 04/02/18 22:44 Dose: 30 unit Lactulose (Enulose) 20 gm PO [facility] Last Admin: 04/02/18 22:47 Dose: Not Given Meclizine HCl (Antivert) 25 mg PO Q8 [facility] Last Admin: 04/03/18 13:25 Dose: 25 mg [facility] Last Admin: 04/03/18 08:12 Dose: 500 mg Multivitamins (Hexavitamin) 1 tab PO DAILY [facility] Last Admin: 04/03/18 10:04 Dose: 1 tab Ondansetron HCl (Zofran Inj) 4 mg IVP Q6 PRN PRN Reason: Nausea/Vomiting Last Admin: 03/31/18 01:05 Dose: 4 mg Pioglitazone HCl (Actos) 30 mg PO DAILY [facility] Last Admin: 04/03/18 10:02 Dose: 30 mg Rosuvastatin Calcium (Crestor) 40 mg PO HS [facility] Last Admin: 04/02/18 22:45 Dose: 40 mg Sitagliptin Phosphate (Januvia) 100 mg PO DAILY [facility] Last Admin: 04/03/18 10:01 Dose: 100 mg - Labs Labs: 04/02/18 06:32 04/02/18 06:32 Assessment and Plan - Assessment and Plan (Free Text) Plan: 1. Dizziness -Antivert -Neurology consulted (Dr. Magaña). Help appreciated. -Carotid U/S :Right and left negative for any hemodynamically significant stenosis. -Echo :Left ventricle normal size :Mild concentric LVH :LVEF : 70% -PT Evaluation. Help appreciated. 2. hx of diabetes -Continue home medications -Carb consistent diet -Accu checks ACHS 3. hx of hypertension -Continue home medications 4. hx of hypercholesterolemia -Continue home medications PPX Lovenox Case discussed with Attending Dr. Rod Berg. Isaias Sharp, PGY-2.
--- NOTE | 2018-04-03 18:01 | CARD ---
APPROVED REPORT Date of service: 03/29/2018 EKG Measurement Heart [id number] <Conclusion> Normal sinus rhythm Moderate voltage criteria for LVH, may be normal variant Borderline ECG
--- NOTE | 2018-04-03 18:02 | CP.PCM.PN ---
Subjective - Date & Time of Evaluation Date of Evaluation: 04/03/18 Time of Evaluation: 10:00 - Subjective Subjective: clinically same Objective - Vital Signs/Intake and Output Vital Signs (last 24 hours): Temp Pulse Resp BP Pulse Ox 98.3 F 73 20 146/77 98 04/03/18 15:00 04/03/18 15:00 04/03/18 15:00 04/03/18 15:00 04/03/18 15:00 Intake and Output: 04/03/18 04/03/18 06:59 18:59 Intake Total 100 400 Balance 100 400 - Medications Medications: Current Medications Carvedilol (Coreg) 6.25 mg PO BID [facility] Last Admin: 04/03/18 17:06 Dose: 6.25 mg Clopidogrel Bisulfate (Plavix) 75 mg PO DAILY [facility] Last Admin: 04/03/18 10:01 Dose: 75 mg Diphenhydramine HCl (Benadryl) 25 mg PO BID [facility] Last Admin: 04/03/18 17:06 Dose: 25 mg Enoxaparin Sodium (Lovenox) 40 mg SC DAILY [facility] Last Admin: 04/03/18 10:04 Dose: 40 mg Famotidine (Pepcid) 40 mg PO DAILY [facility] Last Admin: 04/03/18 10:04 Dose: 40 mg Gabapentin (Neurontin) 800 mg PO HS [facility] Last Admin: 04/02/18 22:44 Dose: 800 mg Insulin Detemir (Levemir) 30 unit SC HS [facility] Last Admin: 04/02/18 22:44 Dose: 30 unit Lactulose (Enulose) 20 gm PO HS [facility] Last Admin: 04/02/18 22:47 Dose: Not Given Meclizine HCl (Antivert) 25 mg PO Q8 [facility] Last Admin: 04/03/18 13:25 Dose: 25 mg Metformin HCl (Glucophage) 500 mg PO BIDCC [facility] Last Admin: 04/03/18 17:05 Dose: 500 mg Multivitamins (Hexavitamin) 1 tab PO DAILY [facility] Last Admin: 04/03/18 10:04 Dose: 1 tab Ondansetron HCl (Zofran Inj) 4 mg IVP Q6 PRN PRN Reason: Nausea/Vomiting Last Admin: 03/31/18 01:05 Dose: 4 mg Pioglitazone HCl (Actos) 30 mg PO DAILY [facility] Last Admin: 04/03/18 10:02 Dose: 30 mg Rosuvastatin Calcium (Crestor) 40 mg PO HS [facility] Last Admin: 04/02/18 22:45 Dose: 40 mg Sitagliptin Phosphate (Januvia) 100 mg PO DAILY [facility] Last Admin: 04/03/18 10:01 Dose: 100 mg - Labs Labs: 04/02/18 06:32 04/02/18 06:32 - Constitutional Appears: Well - Head Exam Head Exam: ATRAUMATIC, NORMAL INSPECTION, NORMOCEPHALIC - Eye Exam Eye Exam: EOMI, Normal appearance, PERRL Pupil Exam: NORMAL ACCOMODATION, PERRL - ENT Exam ENT Exam: Mucous Membranes Moist, Normal Exam - Neck Exam Neck Exam: Full ROM, Normal Inspection. absent: Lymphadenopathy - Respiratory Exam Respiratory Exam: Decreased Breath Sounds - Cardiovascular Exam Cardiovascular Exam: REGULAR RHYTHM, +S1, +S2 - GI/Abdominal Exam GI & Abdominal Exam: Soft, Diminished Bowel Sounds - Rectal Exam Rectal Exam: Deferred
[2018-04-03] MEDS: Insulin Detemir 100 units/ml Vial (Levemir) SC SCH (21:22)
[2018-04-04 02:17] VITALS: BP 149/74; PULSE 75; TEMP 98.4; O2SAT 95
--- NOTE | 2018-04-04 07:28 | CP.PCM.PN ---
Subjective - Date & Time of Evaluation Date of Evaluation: 04/04/18 Time of Evaluation: 07:28 - Subjective Subjective: Progress note for Dr. Rod Berg's Service Patient seen and examined at bedside. Per nursing no acute events occurred overnight. Patient reports an improvement in symptoms since being admitted to the hospital. The patient denies any chest pain, palpitations, fevers, chills, nausea, vomiting, or any other complaints Objective - Vital Signs/Intake and Output Vital Signs (last 24 hours): Temp Pulse Resp BP Pulse Ox 98.4 F 75 20 149/74 95 04/03/18 23:15 04/03/18 23:15 04/03/18 23:15 04/03/18 23:15 04/03/18 23:15 Intake and Output: 04/04/18 04/04/18 06:59 18:59 Intake Total 400 Balance 400 - Medications Medications: Current Medications Carvedilol (Coreg) 6.25 mg PO BID [facility] Last Admin: 04/03/18 17:06 Dose: 6.25 mg Clopidogrel Bisulfate (Plavix) 75 mg PO DAILY [facility] Last Admin: 04/03/18 10:01 Dose: 75 mg Diphenhydramine HCl (Benadryl) 25 mg PO BID [facility] Last Admin: 04/03/18 17:06 Dose: 25 mg Enoxaparin Sodium (Lovenox) 40 mg SC DAILY [facility] Last Admin: 04/03/18 10:04 Dose: 40 mg Famotidine (Pepcid) 40 mg PO DAILY [facility] Last Admin: 04/03/18 10:04 Dose: 40 mg Gabapentin (Neurontin) 800 mg PO [facility] Last Admin: 04/03/18 21:22 Dose: 800 mg Insulin Detemir (Levemir) 30 unit SC [facility] Last Admin: 04/03/18 21:22 Dose: 30 unit Lactulose (Enulose) 20 gm PO [facility] Last Admin: 04/03/18 21:32 Dose: Not Given Meclizine HCl (Antivert) 25 mg PO Q8 [facility] Last Admin: 04/04/18 07:11 Dose: 25 mg [facility] Last Admin: 04/03/18 17:05 Dose: 500 mg Multivitamins (Hexavitamin) 1 tab PO DAILY [facility] Last Admin: 04/03/18 10:04 Dose: 1 tab Ondansetron HCl (Zofran Inj) 4 mg IVP Q6 PRN PRN Reason: Nausea/Vomiting Last Admin: 03/31/18 01:05 Dose: 4 mg Pioglitazone HCl (Actos) 30 mg PO DAILY [facility] Last Admin: 04/03/18 10:02 Dose: 30 mg Rosuvastatin Calcium (Crestor) 40 mg PO HS [facility] Last Admin: 04/03/18 21:23 Dose: 40 mg Sitagliptin Phosphate (Januvia) 100 mg PO DAILY [facility] Last Admin: 04/03/18 10:01 Dose: 100 mg - Labs Labs: 04/02/18 06:32 04/02/18 06:32 - Head Exam Head Exam: ATRAUMATIC, NORMAL INSPECTION, NORMOCEPHALIC - Eye Exam Eye Exam: EOMI, Normal appearance, PERRL Pupil Exam: NORMAL ACCOMODATION, PERRL - ENT Exam ENT Exam: Mucous Membranes Moist, Normal Oropharynx - Respiratory Exam Respiratory Exam: Clear to Ausculation Bilateral, NORMAL BREATHING PATTERN. absent: Chest Wall Tenderness, Prolonged Expiratory Phase, Respiratory Distress - Cardiovascular Exam Cardiovascular Exam: REGULAR RHYTHM, +S1, +S2 - GI/Abdominal Exam GI & Abdominal Exam: Normal Bowel Sounds - Neurological Exam Neurological Exam: Alert, Awake, CN II-XII Intact, Normal Gait, Oriented x3 Assessment and Plan - Assessment and Plan (Free Text) Assessment: 62 year old female with a past medical history of type 2 diabetes, hypertension , hypercholesterolemia who was admitted for dizziness. Plan: 1. Dizziness -Antivert 25mg PO Q8 -Neurology consulted (Dr. Magaña). Help appreciated. -Carotid U/S :Right and left negative for any hemodynamically significant stenosis. -Echo :Left ventricle normal size :Mild concentric LVH :LVEF : 70% -PT Evaluation. Help appreciated. 2. hx of diabetes -Piaglitazone 30mg po daily -Insulin 30unit SC dAILY -Metformin 500mg PO BIDCC -Carb consistent diet -Accu checks ACHS 3. hx of hypertension -Coreg 6.25mg PO BID 4. hx of hypercholesterolemia -Rosuvastatin Calcium 40mg PO HS PPX Lovenox Plan discussed with Dr. Rod Berg. Isaias Sharp, PGY-2 Discharge Instructions: 1. Follow up with PMD within 5-7 days of discharge. 2. Patient given prescription for Vestibular therapy. 3. Patient given prescription for Wheelchair. 4. Patient advised to return to hospital for any new or worsening symptoms. Medications: 1.Coreg 6.25mg PO BID, #60, No refills 2. Plavix 75mg PO Daily, #30, No refills 3.Pepcid 40mg PO Daily, #30, No refills 4.Neurontin 800mg PO HS, #30, No refills. 5. Antivert 25mg PO Q8, #90, No refills. 6.Metformin 500mg PO bid, #60, No refills. 7.Pioglitazone 30mg PO Daily, #30, No refills 8. Rosuvastatin 40mg PO HS, #30, No refills. 9. Sitagliptin 100mg PO Daily, #30, No refills.
[2018-04-04] MEDS: Enoxaparin 40 mg Syringe SC SCH (10:15)
[2018-04-04] MEDS: Multiple Vitamins Tab PO SCH (10:15)
== END 2018-04-04 16:02 | disposition home or self-care (01) | DRG 65 ==
LOC: C.ER 14:17 → OBSVTOIN 16:13 → UNDOADMOB 16:13 → C.9E 16:13 → INTOOBSV 16:13 → C.9E 17:44 → C.6T 17:44 → OBSVTOIN 03-31 17:02 → C.6T 03-31 17:02 → C.9E 03-31 17:02
PROVIDERS: ADMIT Internal Medicine Nephrology; ATTEND Internal Medicine Nephrology
DX: R42 Dizziness and giddiness (principal); E11.42 Type 2 diabetes mellitus with diabetic polyneuropathy; E66.9 Obesity, unspecified; Z68.35 Body mass index [BMI] 35.0-35.9, adult; E78.00 Pure hypercholesterolemia, unspecified; I10 Essential (primary) hypertension; J45.909 Unspecified asthma, uncomplicated; Z88.0 Allergy status to penicillin; Z79.4 Long term (current) use of insulin